=== PATIENT | female | born 1975 | race Caucasian/White ===

== ENCOUNTER 2018-02-24 21:14 | Observation (INO) | payer OTHER ==
[~2018-02-24] VITALS: Ht 165.1 cm; Wt 108.9 kg
[2018-02-24 21:49] LABS: BASOPHILS # (AUTO) 0.1 (0.0-0.1); BASOPHILS % 1.4 % (0.0-1.0); EOSINOPHILS # (AUTO) 0.4 (0.0-0.4); EOSINOPHILS % 4.4 % (0.0-6.0); HEMATOCRIT 34.8 % (34.2-44.1); HEMOGLOBIN 11.8 g/dL (12.0-16.0); LYMPHOCYTES # (AUTO) 3.5 (1.0-3.2); LYMPHOCYTES % 41.4 % (18.0-39.1); MEAN CORPUSCULAR HEMOGLOBIN 29.6 pg (28-32); MEAN CORPUSCULAR HGB CONC 33.9 g/dL (31-35); MEAN CORPUSCULAR VOLUME 87.4 fL (81-99); MONOCYTES # (AUTO) 0.7 (0.2-0.8); MONOCYTES % 8.7 % (4.4-11.3); NEUTROPHILS # (AUTO) 3.6 (2.1-6.9); NEUTROPHILS % 43.6 % (38.7-80.0); PLATELET COUNT 334 x10e3/uL (140-360); RED BLOOD COUNT 3.98 x10e6/uL (3.6-5.1); RED CELL DISTRIBUTION WIDTH 12.8 % (11.7-14.4)
[2018-02-24 22:02] LABS: INR 0.93; PROTHROMBIN TIME 11.7 seconds (11.9-14.5)
[2018-02-24 22:03] LABS: PARTIAL THROMBOPLASTIN TIME 24.1 seconds (23.8-35.5)
[2018-02-24 22:10] LABS: ALANINE AMINOTRANSFERASE 54 IU/L (0-55); ALBUMIN 3.8 g/dL (3.5-5.0); ALBUMIN/GLOBULIN RATIO 0.9 (0.8-2.0); ALKALINE PHOSPHATASE 84 IU/L (40-150); ANION GAP 15.8 mmol/L (8-16); BLOOD UREA NITROGEN 10 mg/dL (7-26); BUN/CREATININE RATIO 14 (6-25); CALCIUM 8.7 mg/dL (8.4-10.2); CARBON DIOXIDE 24 mmol/L (22-29); CHLORIDE 105 mmol/L (98-107); CREATINE KINASE 85 IU/L (29-168); CREATININE, SERUM 0.71 mg/dL (0.57-1.11); EST GLOMERULAR FILTRATION RATE > 60 ML/MIN (60-); GLUCOSE 119 mg/dL (74-118); POTASSIUM 3.8 mmol/L (3.5-5.1); SODIUM 141 mmol/L (136-145)
--- NOTE | 2018-02-24 22:42 | Diagnostic Imaging Report ---
CHEST 2 VIEWS, Technique: CHEST 2 VIEWS Comparison: None Clinical history: Chest pain DISCUSSION: Study is degraded by motion and overpenetration on frontal view. Unremarkable appearance of the heart, mediastinum, lungs and pleural spaces. IMPRESSION: No acute abnormality Signed by: Dr Sana Watters MD on 02/24/2018 10:39 PM
[2018-02-24] MEDS ORDERED: ONDANSETRON HCL INJ 2 MG/ML VIAL IV PRN ×2 (23:00)
[2018-02-24] MEDS ORDERED: DIPHENHYDRAMINE HCL 25 MG CAP PO PRN (23:00)
[2018-02-24] MEDS ORDERED: HYDROCODONE/APAP 7.5MG-325MG 1 EA TAB PO PRN (23:00)
[2018-02-24] MEDS ORDERED: CLONIDINE HCL 0.1 MG TAB PO PRN (23:00)
[2018-02-24] MEDS ORDERED: ZOLPIDEM TARTRATE 5 MG TAB PO PRN (23:00)
[2018-02-24] MEDS ORDERED: ACETAMINOPHEN 325 MG TAB PO PRN (23:00)
[2018-02-24] MEDS ORDERED: ENALAPRILAT IV INJ 1.25 MG/ML VIAL IV PRN (23:00)
[2018-02-24] MEDS: FAMOTIDINE 20 MG TAB PO SCH (23:07)
[2018-02-24] MEDS ORDERED: CREON DR 12,001 EACH PO ×2 (23:13)
[2018-02-24] MEDS ORDERED: AUGMENTIN 500-1 EACH PO (23:13)
[2018-02-24] MEDS ORDERED: INVEGA6 MG PO (23:14)
[2018-02-24] MEDS ORDERED: KLONOPIN2 MG PO (23:15)
[2018-02-24] MEDS ORDERED: REMERON45 M1 PO (23:15)
[2018-02-24] MEDS ORDERED: VITAMIN D1000 UNI1 PO (23:15)
[2018-02-24] MEDS ORDERED: SODIUM CHLORIDE 0.9% 1000ML 1,000 ML IV STA (23:56)
[2018-02-25] MEDS ORDERED: SODIUM CHLORIDE 0.9% 50ML 50 ML ONE (00:28)
[2018-02-25] MEDS ORDERED: IOPAMIDOL 370 MG/ML 200 ML INFUS..BTL INJ ONE (00:28)
--- NOTE | 2018-02-25 01:06 | Diagnostic Imaging Report ---
EXAM: CT CHEST W DATE: 02/24/2018 11:56 PM INDICATION: Chest pain, PE COMPARISON: None TECHNIQUE: Multidetector CT scanning of the chest was performed. Coronal and sagittal multiplanar reformations were obtained. CT pulmonary embolism protocol. CT low dose techniques were utilized, as applicable. IV Contrast: 100 ml Isovue 370/300 FINDINGS: LUNGS AND PLEURA: Mild mosaic attenuation, which can be seen with small airways disease/air trapping. No consolidations or edema. No effusions or pneumothorax. HEART, MEDIASTINUM, VESSELS: Normal heart size, main pulmonary artery and aortic caliber. Coronary artery calcification of the LAD. There is an aberrant right subclavian artery, measuring 1.9 cm at the origin. No evidence of acute pulmonary artery embolism.. UPPER ABDOMEN: Unremarkable. MUSCULOSKELETAL: No acute findings. IMPRESSION: 1. No acute pulmonary embolism. 2. Aberrant right subclavian artery. Signed by: Dr Sana Watters MD on 02/25/2018 1:03 AM
[2018-02-25] MEDS ORDERED: AMYLASE PO SCH ×2 (01:45→08:00)
[2018-02-25] MEDS ORDERED: PROTEASE PO SCH ×2 (01:45→08:00)
[2018-02-25] MEDS ORDERED: LIPASE PO SCH ×2 (01:45→08:00)
[2018-02-25] MEDS ORDERED: [UNRECOGNIZED DRUG - OTHER] PO SCH (01:45)
[2018-02-25] MEDS ORDERED: CLONAZEPAM 1 MG TAB PO PRN (06:15)
[2018-02-25] MEDS ORDERED: PANCRELIPASE PO PRN (06:30)
[2018-02-25 06:58] LABS: CREATINE KINASE MB 0.6 ng/mL (0-5.0)
[2018-02-25] MEDS ORDERED: PANCRELIPASE PO SCH (08:00)
[2018-02-25] MEDS ORDERED: [UNRECOGNIZED DRUG - OTHER] PO SCH (08:00)
[2018-02-25] MEDS: FAMOTIDINE 20 MG TAB PO SCH (08:15)
[2018-02-25] MEDS ORDERED: CHOLECALCIFEROL 1,000 UNIT TAB PO SCH ×2 (09:00)
[2018-02-25] MEDS ORDERED: AMOXICILLIN/CLAVULANATE K 500 MG TAB PO SCH (09:00)
[2018-02-25] MEDS ORDERED: LISINOPRIL 10 MG TAB PO SCH (09:00)
[2018-02-25] MEDS ORDERED: ASPIRIN 325 MG TAB EC PO SCH (09:00)
[2018-02-25] MEDS ORDERED: LIPITOR20 MG PO (09:04)
[2018-02-25] MEDS ORDERED: ASPIRIN ENTERI325 MG PO (09:07)
[2018-02-25] MEDS ORDERED: ENOXAPARIN SOD INJ 40 MG/0.4 ML SYR SC SCH (09:15)
--- NOTE | 2018-02-25 10:00 | Consultation ---
DATE OF CONSULTATION: February 25, 2018 CARDIOLOGY CONSULTATION REASON FOR CONSULTATION: Chest pain. Ms. Myrick is a 42-year-old female with a history of Graves disease, as well as some borderline diabetes and hypertension. She comes in with sharp chest pain, as well as abdominal pain for 30 minutes prior to arrival. Since her admission to the emergency room, her chest pain has resolved. Her pain was worse when she moved, more on the right side and more when she took a big breath. She has remained hemodynamically stable in the emergency room. Her cardiac enzymes were negative times 2 sets. PAST MEDICAL HISTORY: As listed above. SOCIAL HISTORY: Patient does not smoke or drink. DRUG ALLERGIES: MORPHINE. MEDICATIONS: Were reviewed. Please see MAR. REVIEW OF SYSTEMS: Negative except as dictated in the history of present illness. PHYSICAL EXAMINATION VITALS: Afebrile, heart rate 71, blood pressure is 134/85, and O2 sats 96%. CARDIOVASCULAR: Regular rhythm. No murmurs or gallops. LUNGS: Clear to auscultation bilaterally. ABDOMEN: Soft. EXTREMITIES: No edema. Pedal pulses are 1+. Chest x-ray and CT scan of the chest were reviewed with no abnormalities. Hemoglobin is 11.8. Creatinine is normal. Triglycerides 302. Cardiac enzymes are negative. ASSESSMENT: Atypical chest pain. RECOMMENDATIONS: Ms. myrick has been ruled out for myocardial function. She is stable for discharge as she has minimal risk factors and is 42 years of age. Will follow her up in the office this week for outpatient echocardiogram and stress test. I thank Dr. Ortega for this consultation. Job#: [id number] SHARON
--- NOTE | 2018-02-25 11:44 | Discharge Summary ---
ADMISSION DIAGNOSES: 1. Chest pain. 2. Urinary tract infection. 3. Hyperlipidemia. 4. Pancreatitis. 5. MVD. 6. Posttraumatic stress disorder. 7. Anxiety. DISCHARGE DIAGNOSES: 1. Chest pain. 2. Urinary tract infection. 3. Hyperlipidemia. 4. Pancreatitis. 5. MVD. 6. Posttraumatic stress disorder. 7. Anxiety. 8. Ruled out myocardial infarction. HISTORY: Patient has a history of Graves' disease, pancreatitis, fatty liver, MVD, PTSD, anxiety. Surgical history of cholecystectomy and tonsillectomy. HOSPITAL COURSE: A 42-year-old female complains of sharp, constant chest pain that began yesterday around [address] The pain started in the central chest and radiated to the right chest. Pain lasted 1 to 1-1/2 hours. Nothing improved or worsened the pain. No associated diaphoresis, shortness of breath, dizziness, or fever. Patient recently also started on meds for UTI. On admission, troponins were negative x2. EKG was negative. Echo was pending. CT chest negative. Aspirin given. EKG, normal sinus. Patient resumed including Augmentin for UTI. Per cardiology, patient can be discharged home without getting the echo. She can follow up in the office next week for any indicated images or test. She will also follow up with primary care in 1 to 2 weeks. Patient was given Lipitor and aspirin at discharge and told to resume her home medications. Patient understands discharge instructions and agrees to plan. Vital signs stable. Patient afebrile. Dictated by Mary Alice Busby NP NAINA THOMPSON MD Job#: [id number]
[2018-02-25] MEDS ORDERED: FAMOTIDINE 20 MG TAB PO SCH (16:30)
[2018-02-25] MEDS ORDERED: MIRTAZAPINE 15 MG TAB PO SCH (21:00)
[2018-02-25] MEDS ORDERED: PALIPERIDONE 6 MG PO SCH ×2 (21:00)
[2018-02-25] MEDS ORDERED: CLONAZEPAM 2 MG PO SCH (21:00)
[2018-02-25] MEDS ORDERED: ATORVASTATIN 20 MG TAB PO SCH (21:00)
[2018-02-25] MEDS ORDERED: MIRTAZAPINE 45 MG PO SCH (21:00)
== END 2018-02-25 12:08 | disposition home or self-care (01) ==
LOC: ER 21:14 → ERHOLD 22:48 → UNDOADMOB 22:48 → ERHOLD 22:54
PROVIDERS: ADMIT Internal Medicine; ATTEND Internal Medicine
DX: R07.89 Other chest pain (principal); N39.0 Urinary tract infection, site not specified; I10 Essential (primary) hypertension; E11.9 Type 2 diabetes mellitus without complications; E05.00 Thyrotoxicosis with diffuse goiter without thyrotoxic crisis or storm; K76.0 Fatty (change of) liver, not elsewhere classified; F41.9 Anxiety disorder, unspecified; F32.9 Major depressive disorder, single episode, unspecified; Z83.3 Family history of diabetes mellitus; Z88.5 Allergy status to narcotic agent; E78.5 Hyperlipidemia, unspecified; K85.90 Acute pancreatitis without necrosis or infection, unspecified
CPT/HCPCS: 36415 ×2; 71046; 71260; 80053; 80061; 82550 ×2; 82553 ×2; 84484 ×2; 84702; 85025; 85379; 85610; 85730; 93005; 99284; G0378 ×2; J7030; Q9967